=== PATIENT | female | born 1980 | race African-American/Black ===

== ENCOUNTER 2016-07-16 23:14 | Emergency (ER) | payer OTHER ==
[2016-07-16 23:29] VITALS: BP 138/88; PULSE 95; TEMP 98.5; BMI 29.1
--- NOTE | 2016-07-17 00:18 | PDOC ---
History of Present Illness - General History Source: Patient Exam Limitations: No Limitations - History of Present Illness Initial Comments: 07/17/16 00:52 The patient is a 36 year old female presenting with her friend, with a significant past medical history of left sided sciatica and degenerative spinal discs, who presents to the emergency department with left lower extremity pain and swelling for the past 2 days. She describes her pain as moderate, diffused throughout the lower extremity, without radiation. She notes that her pain is exacerbated when the leg is touched. The patient is currently ambulating with a cane due to the pain. She states that she follows up with a paint maker who controls her chronic back pain. The patient denies chest pain, shortness of breath, headache and dizziness. Denies fever, chills, nausea, vomit, diarrhea and constipation. Denies dysuria, frequency, urgency and hematuria. Allergies: Past surgical history: Spinal fusion Social history: Smoker (3 daily). No alcohol or drug use reported PMD - Dr. Caitlyn Duarte <Matthias Reza - Last Filed: 07/17/16 01:41> <Luis Scott - Last Filed: 07/17/16 02:20> - General Chief Complaint: Pain Stated Complaint: PAIN Time Seen by Provider: 07/17/16 00:17 Past History <Matthias Reza - Last Filed: 07/17/16 01:41> - Past Medical History Other medical history: denies - Psycho/Social/Smoking Cessation Hx Anxiety: No Suicidal Ideation: No Smoking History: Current every day smoker Number of Cigarettes Smoked Daily: 3 Information on smoking cessation initiated: Yes 'Breaking Loose' booklet given: 07/16/16 Hx Alcohol Use: No Drug/Substance Use Hx: No Substance Use Type: None <Luis Scott - Last Filed: 07/17/16 02:20> - Past Medical History Allergies/Adverse Reactions: Allergies Allergy/AdvReac Type Severity Reaction Status Date / Time No Known Allergies Allergy Verified 07/16/16 23:23 Home Medications: Ambulatory Orders Gabapentin 400 mg PO TID 07/16/16 Meloxicam 7.5 mg PO DAILY 07/16/16 Tizanidine HCl 2 mg PO TID 07/16/16 Review of Systems - Review of Systems Able to Perform ROS?: Yes Comments:: 07/17/16 00:51 CONSTITUTIONAL: No fever, no chills, no fatigue EYES: No visual changes ENT: No ear pain, no sore throat CARDIOVASCULAR: No chest pain, no palpitations RESPIRATORY: No cough, no SOB GI: No abdominal pain, no nausea, no vomiting, no constipation, no diarrhea GENITOURINARY: No dysuria, no frequency, no hematuria EXTREMITIES: +Bilateral lower extremity swelling and pain. MUSKULOSKELETAL: No backpain, no joint pain, no myalgias SKIN: No rash NEURO: No headache <Matthias Reza - Last Filed: 07/17/16 01:41> *Physical Exam - Vital Signs Last Vital Signs Temp Pulse Resp BP Pulse Ox 98.5 F 95 H 18 138/88 97 07/16/16 23:26 07/16/16 23:26 07/16/16 23:26 07/16/16 23:26 07/16/16 23:26 - Physical Exam Comments: 07/17/16 00:51 CONSTITUTIONAL: Well-appearing; well-nourished; in no apparent distress HEAD: Normocephalic; atraumatic EYES: PERRL; EOM intact ENMT: External appears normal; normal oropharynx NECK: Supple; non-tender; no cervical lymphadenopathy CARD: Normal S1, S2; no murmurs, rubs, or gallops RESP: Normal chest excursion with respiration; breath sounds clear and equal bilaterally; no wheezes, rhonchi, or rales ABD: Soft, non-distended; non-tender; no palpable organomegaly, no palpable hernias EXT: +1 pitting edema bilaterally, Straight legs raise negative bilaterally Neurosensory intact, 5/5 strength in both lower extremities; distal pulses intact SKIN: Warm, dry, no rash NEURO: No focal neurological deficiencies. <Matthias Reza - Last Filed: 07/17/16 01:41> - Vital Signs Last Vital Signs Temp Pulse Resp BP Pulse Ox 98.5 F 95 H 18 138/88 97 07/16/16 23:26 07/16/16 23:26 07/16/16 23:26 07/16/16 23:26 07/16/16 23:26 <Luis Scott - Last Filed: 07/17/16 02:20> ED Treatment Course - RADIOLOGY Radiograph Interpretation: 07/17/16 01:31 Bilateral lower extremity duplex Reviewed by: Dr. Anastasia Nash Impression: No evidence of DVT of the bilateral lower extremities. 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 In the ER, patient is awake and alert, resting comfortably. Physical exam revealed no focal deficits, negative straight leg raise bilaterally. Cutaneous Hyperesthesia is noted bilaterally ( more pronounced on the left); dorsalis pedis and tibialis posterior are +2 bilaterally. DTRs are +2 bilaterally. Bilateral lower extremity Doppler ultrasound shows no evidence of DVT. This time, I do not believe acute issues are present. Patient may require outpatient follow-up with rheumatology and neurology as needed. Will discharge. <Luis Scott - Last Filed: 07/17/16 02:20> *DC/Admit/Observation/Transfer - Attestations Scribe Attestion: 07/17/16 00:50 Documentation prepared by Matthias Reza, acting as medical pathologist for Luis Scott MD <Matthias Reza - Last Filed: 07/17/16 01:41> - Attestations Physician Attestion: 07/17/16 02:16 The documentation was prepared by the scribe under my direct supervision. I have reviewed the documentation which correctly represents the findings, medical decision-making and critical action taken by me. <Luis Scott - Last Filed: 07/17/16 02:20> Diagnosis at time of Disposition: Pain of left lower extremity - Discharge Dispostion Disposition: HOME Condition at time of disposition: Stable - Referrals Referrals: Caitlyn Duarte MD [Primary Care Provider] - - Patient Instructions Printed Discharge Instructions: DI for Leg Pain
== END 2016-07-17 03:04 | disposition home or self-care (01) ==
LOC: JER 23:14
DX: M79.605 Pain in left leg (principal); M79.604 Pain in right leg; M54.42 Lumbago with sciatica, left side
CPT/HCPCS: 93970-TC; 99281-25

== ENCOUNTER 2017-06-01 14:47 | Emergency (ER) | payer OTHER ==
[2017-06-01] MEDS ORDERED: KETOROLAC TROMETHAMINE 30 MG/1 ML VIAL IVPUSH ONE (15:14)
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
[2017-06-01 15:39] VITALS: BP 128/84; PULSE 81; TEMP 98.5; BMI 28.9
[2017-06-01] MEDS ORDERED: KETOROLAC TROMETHAMINE 30 MG/1 ML VIAL ONE (15:52)
== END 2017-06-01 19:24 | disposition home or self-care (01) ==
LOC: JER 14:47
PROC: 3E0333Z Introduction of Anti-inflammatory into Peripheral Vein, Percutaneous Approach (ICD-10-PCS; principal; 2017-06-01)
DX: S16.1XXA Strain of muscle, fascia and tendon at neck level, initial encounter (principal); M62.830 Muscle spasm of back; M25.552 Pain in left hip; V49.59XA Passenger injured in collision with other motor vehicles in traffic accident, initial encounter; Y92.488 Other paved roadways as the place of occurrence of the external cause; Y93.89 Activity, other specified; Y99.8 Other external cause status; M51.16 Intervertebral disc disorders with radiculopathy, lumbar region; F17.210 Nicotine dependence, cigarettes, uncomplicated
CPT/HCPCS: 36415; 70450-TC; 72125-TC; 72131-TC; 72192-TC; 84703; 99282-25

== ENCOUNTER 2018-06-02 01:24 | Emergency (ER) | payer OTHER ==
[2018-06-02 02:05] VITALS: BP 122/89; PULSE 92; TEMP 98.4; BMI 29.9
--- NOTE | 2018-06-02 02:11 | PDOC ---
History of Present Illness - General Chief Complaint: Headache Stated Complaint: HEADACHES X 5DAYS Time Seen by Provider: 06/02/18 01:57 - History of Present Illness Initial Comments: 06/02/18 02:10 38 yo F with h/o scoliosis, slipped disc lumbar spine, sacrum arthritis, who p/ w left sided headache x 5 days. Patient reports 5 days of worsening, pulsating, left sided headache for five days with no identifiable alleviators. Endorses photphobia, phonophobia, nausea without vomiting, intermittent blurry vision, and decreased PO intake. States that headache was mild in intensity on onset, but worse severity than other GOMEZ's in past. Also endorses two days of sore throat, and subjective fever. Attempted OTC Mucinex. On Duloxetine, Gabapentin, Oxycodone for chronic back pain. Patient denies F/C, neck stiffness, lacrimation, rhinorrhea, tinnitus, hearing loss, aura, CP, SOB, urinary complaints, abdominal pain, diarrhea, hematuria, BPR, constipation, lightheadedness, weakness, sensory changes. PMHx: as noted above ROS: as noted SHx: 1/2 ppd x 10 year tobacco use. Denies IVDA. Caffeine intake weekly 1-2 cups /coffee per day. Allergies: NKDA Past History - Past Medical History Allergies/Adverse Reactions: Allergies Allergy/AdvReac Type Severity Reaction Status Date / Time No Known Allergies Allergy Verified 06/02/18 02:06 Home Medications: Ambulatory Orders Gabapentin 400 mg PO TID 07/16/16 Baclofen 10 mg PO BID 06/02/18 Duloxetine HCl 30 mg PO DAILY 06/02/18 Oxycodone HCl/Acetaminophen [Oxycodone-Acetaminophen 5-325] 1 each PO TID COPD: No - Suicide/Smoking/Psychosocial Hx Smoking History: Never smoked Have you smoked in the past 12 months: No Number of Cigarettes Smoked Daily: 3 Information on smoking cessation initiated: No 'Breaking Loose' booklet given: 07/16/16 Hx Alcohol Use: No Drug/Substance Use Hx: No Substance Use Type: None Review of Systems - Review of Systems Comments:: 06/02/18 02:11 GENERAL/CONSTITUTIONAL: No fever or chills. No weakness. HEAD, EYES, EARS, NOSE AND THROAT: + Sore throat. No ear pain or discharge. CARDIOVASCULAR: No chest pain or shortness of breath RESPIRATORY: +cough. No wheezing, or hemoptysis. GASTROINTESTINAL: +nausea. No vomiting, diarrhea or constipation. GENITOURINARY: No dysuria, frequency, or change in urination. MUSCULOSKELETAL: + back pain. No joint or muscle swelling or pain. No neck pain. SKIN: No rash NEUROLOGIC:+ headache. No vertigo, loss of consciousness, or change in strength/ sensation. ENDOCRINE: No increased thirst. No abnormal weight change HEMATOLOGIC/LYMPHATIC: No anemia, easy bleeding, or history of blood clots. ALLERGIC/IMMUNOLOGIC: No hives or skin allergy. *Physical Exam - Vital Signs Last Vital Signs Temp Pulse Resp BP Pulse Ox 98.4 F 92 H 18 122/89 98 06/02/18 01:24 06/02/18 01:24 06/02/18 01:24 06/02/18 01:24 06/02/18 01:24 - Physical Exam Comments: 06/02/18 02:11 GENERAL: Awake, alert, and fully oriented, in no acute distress HEAD: No signs of trauma, normocephalic, atraumatic EYES: PERRLA, EOMI, sclera anicteric, conjunctiva clear ENT: Auricles normal inspection, hearing grossly normal, nares patent, oropharynx clear without exudates. Moist mucosa NECK: Normal ROM, supple, no lymphadenopathy, JVD, or masses LUNGS: No distress, speaks full sentences, clear to auscultation bilaterally HEART: Regular rate and rhythm, normal S1 and S2, no murmurs, rubs or gallops, peripheral pulses normal and equal bilaterally. ABDOMEN: Soft, nontender, normoactive bowel sounds. No guarding, no rebound. No masses EXTREMITIES : Normal inspection, Normal range of motion, no edema. No clubbing or cyanosis. NEUROLOGICAL: Cranial nerves II through XII grossly intact. Normal speech, normal gait, no focal sensorimotor deficits. Normal MELINA, HTS. Neg dysmetria on FTN. SKIN: Warm, Dry, normal turgor, no rashes or lesions noted Moderate Sedation - Procedure Monitoring Vital Signs: Procedure Monitoring Vital Signs Temperature 98.4 F 06/02/18 01:24 Pulse Rate 92 H 06/02/18 01:24 Respiratory Rate 18 06/02/18 01:24 Blood Pressure 122/89 06/02/18 01:24 O2 Sat by Pulse Oximetry (%) 98 06/02/18 01:24 ED Treatment Course - LABORATORY CBC & Chemistry Diagram: 06/02/18 02:31 06/02/18 02:31 Medical Decision Making - Medical Decision Making 06/02/18 02:38 38 yo F with h/o scoliosis, slipped disc lumbar spine, sacrum arthritis, who p/ w left sided, pulsating, temporal parietal and occipital headache x 5 days. + photphobia, phonophobia, nausea without vomiting, intermittent blurry vision, and decreased PO intake. VSS, AF, A&Ox3. Physical exam unremarkable. Likely migraine wihtout aura vs. tension type GOMEZ. Absent nuchal findings, neruo deficits on physical exam. Although low suspicion will consider meningitis, SAH , papilledema, dural venous thrombosis. Ed Course: CBC,CMP,HCG CTH Reglan, NS, Diphenhydramine 06/02/18 03:28 CBC,CMP: Unremarkable Influenza: Neg HCG: Neg CTH: Neg 06/02/18 04:28 Patient adamantly refuses LP, and has voiced understanding of risk of refusal of procedure, despite multiple attempts to provide LP. Patient signs out AMA. Headache improved *DC/Admit/Observation/Transfer Diagnosis at time of Disposition: Headache Qualifiers: Headache type: other headache syndrome Qualified Code(s): G44.89 - Other headache syndrome - Discharge Dispostion Disposition: AGAINST MEDICAL ADVICE Condition at time of disposition: Fair - Referrals Referrals: Caitlyn Duarte MD [Primary Care Provider] - - Patient Instructions Printed Discharge Instructions: DI for Headache Additional Instructions: Please return to the emergency department with any new or worsening symptoms or concerns. Please follow up with your primary care physician within 72 hours. As discussed you may have undiagnosed illness or medical diagnosis that if left untreated can lead to multiple complications including, but not limited to permanent disability and . Should you reconsider you should turn to the emergency department for evaluation. - Post Discharge Activity - Attestations Physician Attestion: 06/02/18 02:11 I attest to the information provided in this note.
[2018-06-02] MEDS ORDERED: METOCLOPRAMIDE HCL INJECTION 10 MG/2 ML VIAL IVPUSH ONE (02:33)
[2018-06-02] MEDS ORDERED: KETOROLAC TROMETHAMINE 15 MG/ML VIAL IVPUSH ONE (02:33)
[2018-06-02] MEDS ORDERED: SODIUM CHLORIDE 1,000 ML IV STA (02:33)
[2018-06-02] MEDS ORDERED: METOCLOPRAMIDE HCL INJECTION 10 MG/2 ML VIAL ONE (03:05)
[2018-06-02 03:06] LABS: BASO % 0.8 % (0-2.0); EOS % 1.2 % (0-4.5); HEMATOCRIT 39.4 % (32.4-45.2); HEMOGLOBIN 13.9 GM/dL (10.7-15.3); LYMPH % 39.1 % (8-40); MCH 32.7 pg (25.7-33.7); MCHC 35.3 g/dl (32.0-36.0); MEAN CELL VOLUME 92.6 fl (80-96); MEAN PLT VOLUME 7.7 fl (7.5-11.1); MONO % 11.2 % (3.8-10.2); NEUT % 47.7 % (42.8-82.8); PLATELET COUNT 179 K/MM3 (134-434); RBC 4.25 M/mm3 (3.60-5.2); RDW 12.8 % (11.6-15.6); WHITE BLOOD COUNT 3.7 K/mm3 (4.0-10.0)
[2018-06-02 03:26] LABS: ALBUMIN 3.8 g/dl (3.4-5.0); ALK PHOS 62 U/L (45-117); ANION GAP 7 MMOL/L (8-16); BILIRUBIN,TOTAL 0.3 mg/dL (0.2-1); BLOOD UREA NITROGEN 8 mg/dL (7-18); CALCIUM 8.5 mg/dL (8.5-10.1); CHLORIDE 101 mmol/L (98-107); CO2 29 mmol/L (21-32); CREATININE 0.7 mg/dL (0.55-1.3); GLUCOSE,RANDOM 90 mg/dL (74-106); POTASSIUM 3.6 mmol/L (3.5-5.1); SGOT/AST 20 U/L (15-37); SGPT/ALT 20 U/L (13-61); SODIUM 137 mmol/L (136-145); TOT PROT 7.2 g/dl (6.4-8.2)
--- NOTE | 2018-06-02 04:37 | PDOC ---
Attending Attestation - Resident Resident Name: Zaid Oneill - ED Attending Attestation I have performed the following: I have examined & evaluated the patient, The case was reviewed & discussed with the resident, I agree w/resident's findings & plan - Physicial Exam PE: 06/02/18 04:35 Agree with resident exam - Medical Decision Making 06/02/18 04:36 58-year-old female with headache Presentation and exam are possibly consistent with subarachnoid hemorrhage This was discussed with the patient at length with both myself and the resident She was advised to have lumbar puncture which she has refused, she will be signing out AGAINST MEDICAL ADVICE Impression headache <Corrine James Chen - Last Filed: 06/02/18 04:35> - HPI HPI: 06/02/18 04:38 The patient is a 38 year old female, with a significant past medical history of scoliosis, slipped discs in lumbar spine, arthritis of the sacrum, who presents to the emergency department with, 5 days of a headache. She describes her headache as left sided, pulsating with associated photophobia, phonophobia, and nausea without emesis. She describes her headache as the worst of her life. She denies recent fevers, chills, or dizziness. She denies recent vomit, diarrhea or constipation. She denies recent dysuria, frequency, urgency or hematuria. She denies recent chest pain or shortness of breath. Allergies: NKDA Primary Care Physician: Dr. Duarte - Medical Decision Making 06/02/18 04:38 EXAM: HEAD CT WITHOUT CONTRAST HISTORY: Headache COMPARISON: None. FINDINGS: The ventricular system is midline and nondilated. The sulcal pattern is normal for the patient's age. There is no bleed, mass, extra-axial fluid collection or mass effect. No skull fracture or skull lesion is identified. The visualized paranasal sinuses and mastoid air cells are clear other than minimal left maxillary sinus mucosal thickening. IMPRESSION: No evidence of acute pathology. Read by: Shiraz Boswell MD <Angelika Saunders - Last Filed: 06/02/18 04:38> Attestations - Attestations 06/02/18 04:38 Documentation prepared by Angelika Saunders, acting as associate medical director for Corrine James DO. <Angelika Saunders - Last Filed: 06/02/18 04:38>
== END 2018-06-02 06:50 | disposition left against medical advice (07) ==
LOC: JER 01:24
PROC: 3E033GC Introduction of Other Therapeutic Substance into Peripheral Vein, Percutaneous Approach (ICD-10-PCS; principal; 2018-06-02)
PROC: 3E0337Z Introduction of Electrolytic and Water Balance Substance into Peripheral Vein, Percutaneous Approach (ICD-10-PCS; 2018-06-02)
DX: G44.89 Other headache syndrome (principal); M41.9 Scoliosis, unspecified; Z72.0 Tobacco use
CPT/HCPCS: 36415; 70450-TC; 80053; 84703; 85025; 87804; 96361; 96374; 96375; 99282-25; J7030

== ENCOUNTER 2022-10-11 14:44 | Emergency (ER) | payer OTHER ==
[2022-10-11 14:54] VITALS: BP 117/76; PULSE 114; RESP 18; TEMP 97.5; BMI 29.9
[2022-10-11] MEDS ORDERED: KETOROLAC TROMETHAMINE 30 MG/1 ML VIAL IM ONE (16:53)
[2022-10-11] MEDS ORDERED: LIDOCAINE 5% TOPICAL PATCH TP ONE (16:53)
[2022-10-11] MEDS ORDERED: KETOROLAC TROMETHAMINE 30 MG/1 ML VIAL ONE (17:02)
[2022-10-11] MEDS ORDERED: LIDOCAINE 5% TOPICAL PATCH ONE (17:02)
[2022-10-11] MEDS ORDERED: LIDOCAINE PATCH REMOVAL MC SCH (22:00)
== END 2022-10-11 19:37 | disposition home or self-care (01) ==
LOC: JERFT 14:44 → JER 14:44 → JERFT 19:37
PROC: 3E0233Z Introduction of Anti-inflammatory into Muscle, Percutaneous Approach (ICD-10-PCS; principal; 2022-10-11)
DX: M54.50 Low back pain, unspecified (principal)
CPT/HCPCS: 84703; 99284-25